=== PATIENT | male | born 1995 | race Caucasian/White ===

== ENCOUNTER 2022-03-21 16:03 | Emergency (ER) | payer MEDICAID, SELFPAY ==
[2022-03-21 16:25] VITALS: BP 103/55; PULSE 74; RESP 16; TEMP 36.3; O2SAT 100
--- NOTE | 2022-03-21 18:39 | ED.SKABFB ---
HPI - Skin/Abscess/Foreign Bdy General Chief complaint: Abdominal Pain <SADI Foote Last Filed: 03/21/22 20:57> Stated complaint: hernia <SADI Foote Last Filed: 03/21/22 20:57> Time Seen by Provider: 03/21/22 18:25 <SADI Foote Last Filed: 03/21/22 20:57> Source: patient <SADI Foote Last Filed: 03/21/22 20:57> Mode of arrival: ambulatory <SADI Foote Last Filed: 03/21/22 20:57> Limitations: no limitations <SADI Foote Last Filed: 03/21/22 20:57> History of Present Illness HPI narrative: This is a 27 year old male that presents to the ER for an area of redness to the right lower abdomen. Noted over the last couple of days. Reports the area is tender. He thought he had an ingrown hair, but was unable to pop it. He thought maybe he had a hernia which prompted him to be seen. Also would like to be checked for STDs. Reports he is not having any symptoms. He recently found out his girlfriend had cheated on him so he wanted to get checked. Denies fever, nausea, vomiting, dysuria, hematuria, rashes or abnormal penile discharge. <SADI Foote Last Filed: 03/21/22 20:57> Related Data Allergies/Adverse reactions: Allergies Allergy/AdvReac Type Severity Reaction Status Date / Time No Known Allergies Allergy Verified 03/21/22 17:51 <SADI Foote Last Filed: 03/21/22 20:57> Review of Systems Review of Systems: CONSTITUTIONAL: Denies fever GASTROINTESTINAL: Denies abdominal pain, nausea, vomiting, or diarrhea. GENITOURINARY: Denies dysuria or hematuria. SKIN: Denies rash <SADI Foote Last Filed: 03/21/22 20:57> All systems reviewed & are unremarkable except as noted in HPI and below <SADI Foote Last Filed: 03/21/22 20:57> [facility] [place] Past Medical History Medical History: Medical History (Updated 03/21/22 @ 20:55 by Amy Edwards PA-C) No active medical problems <Amy Edwards PA-C - Last Filed: 03/21/22 20:57> Social History Social History: Social History (Updated 03/21/22 @ 18:42 by Amy Edwards PA-C) Smoking status: Never smoker <Amy Edwards PA-C - Last Filed: 03/21/22 20:57> Exam Narrative: GENERAL: Well-appearing, well-nourished, and in no acute distress. HEAD: Normocephalic, atraumatic. EYES: EOMI. CHEST: Clear to auscultation. No respiratory distress. No wheezes rales or rhonchi HEART: Regular rate and rhythm. No murmur heard. Normal peripheral pulses. ABDOMEN: Soft, nontender, nondistended, normal active bowel sounds. Small (1cm) area of edema and erythema without central fluctuance EXTREMITIES: Normal range of motion. No edema. SKIN: Warm, dry, no rash. NEURO: No focal deficits. Alert and oriented x3. PSYCH: Normal mood and affect <Amy Edwards PA-C - Last Filed: 03/21/22 20:57> Course [employer]/PA Physician Supervision I did not see this patient nor was the care plan discussed with me. I was available for evaluation and consultation, I agree with the documentation <Dino Contreras MD - Last Filed: 03/21/22 21:42> Vital Signs Vital signs: Vital Signs Temperature 36.3 C L 03/21/22 16:25 Pulse Rate 74 03/21/22 16:25 Respiratory Rate 16 03/21/22 16:25 Blood Pressure 103/55 L 03/21/22 16:25 Pulse Oximetry 100 03/21/22 16:25 Oxygen Delivery Room Air 03/21/22 16:25 Temperature 36.3 C L 03/21/22 16:25 Pulse Rate 74 03/21/22 16:25 Respiratory Rate 16 03/21/22 16:25 Blood Pressure 103/55 L 03/21/22 16:25 Pulse Oximetry 100 03/21/22 16:25 Oxygen Delivery Room Air 03/21/22 16:25 <Amy Edwards PA-C - Last Filed: 03/21/22 20:57> Vital Signs Temperature 36.3 C L 03/21/22 16:25 Pulse Rate 74 03/21/22 16:25 Respiratory Rate 16 03/21/22 16:25 Blood Pressure 103/55 L 03/21/22 16:25 Pulse Oximetry 100 03/21/22 16:25 Oxygen Delivery Room Air 03/21/22 16:
[2022-03-21 18:43] LABS: Basophils Percent Auto 0.3 % (0.2-1.2); Eosinophils Absolute Auto 0.1 K/mm3 (0-0.3); Hematocrit 47.5 % (42.0-52.0); Hemoglobin 16.3 g/dL (14.0-18.0); Immature Granulocyte Absolute 0.04 K/mm3 (0.00-0.031); Immature Granulocyte Percent A 0.4 % (0-0.5); Lymphocytes Absolute Auto 1.36 K/mm3 (0.9-3.2); Lymphocytes Percent Auto 13.7 % (18.3-44.2); Mean Corpuscular HGB Conc 34.3 g/dl (32-36); Mean Corpuscular Hemoglobin 30.5 pg (26-34); Mean Corpuscular Volume 88.8 fl (80-100); Mean Platelet Volume 10.1 fl (7.4-10.4); Monocytes Absolute Auto 0.7 K/mm3 (0.1-0.6); Monocytes Percent Auto 6.7 % (2.6-8.5); Neutrophils Absolute Auto 7.8 K/mm3 (1.3-6.7); Neutrophils Percent Auto 77.9 % (45.5-73.1); Platelet Count Result 234 k/mm3 (150-375); Red Blood Count 5.35 M/mm3 (4.6-6.20); Red Cell Distribution Width 13.6 % (11.5-14.5)
[2022-03-21 18:53] LABS: Alanine Aminotransferase 24 U/L (6-50); Albumin Level 4.7 g/dL (3.5-5.1); Alkaline Phosphatase 58 U/L (38-126); Anion Gap 9 mmol/L (8-16); Aspartate Amino Transferase 38 U/L (17-59); Bilirubin,Total 0.6 mg/dL (0.2-1.3); Blood Urea Nitrogen 15 mg/dL (9-20); Calcium 9.5 mg/dL (8.4-10.2); Carbon Dioxide 28 mmol/L (22-30); Chloride 104 mmol/L (98-107); Estimated CRCL calculation 147 ml/min; Estimated Glomerular Filt Rate > 60; Glucose 101 mg/dL (65-110); Lipase 37 U/L (23-300); Potassium 4.1 mmol/L (3.4-5.0); Sodium 141 mmol/L (137-145)
[2022-03-21 19:14] LABS: Appearance Urine Clear (Clear); Bilirubin Urine 1+ (Negative); Blood Urine Negative (Negative); Color Urine Yellow (Yellow); Glucose Urine UA Negative (Negative); Ketones Urine Negative (Negative); Leukocyte Esterase Ur Negative LEU/UL (Negative); Nitrate Urine Negative (Negative); Protein Urine Trace mg/dL (Negative); Specific Grav Ur >= 1.030 (1.001-1.035)
[2022-03-21 19:21] LABS: Mucus Urine Heavy /lpf; RBC Urine 0-2 /hpf (0-2); WBC Urine 0-3 /hpf
[2022-03-21 19:22] LABS: Add Urine Microscopic? YES
== END 2022-03-21 21:04 | disposition home or self-care (01) ==
PROVIDERS: Physician Assistant; Emergency Provider Emergency Medicine
DX: L03.311 Cellulitis of abdominal wall (principal)
CPT/HCPCS: 36415; 80053; 81001; 83690; 85025; 87491; 87591; 87661; 99283